=== PATIENT | male | born 1995 ===

== ENCOUNTER 2021-09-03 12:04 | Emergency (ER) | payer SELFPAY ==
[~2021-09-03] VITALS: Ht 170.2 cm; Wt 67.3 kg
[2021-09-03 12:12] VITALS: TEMP 98.3
[2021-09-03 14:42] VITALS: BP 129/79; PULSE 68
== END 2021-09-03 14:42 | disposition home or self-care (01) ==
LOC: COL.ER 12:04
DX: S40.012A Contusion of left shoulder, initial encounter (principal); W18.30XA Fall on same level, unspecified, initial encounter; Y93.66 Activity, soccer
CPT/HCPCS: J1885